=== PATIENT | female | born 1970 | race Caucasian/White ===

== ENCOUNTER → 2020-03-02 | Outpatient (CLI) | payer OTHER ==
[~2020-03-02] MED LIST: DIATRIZOATE MEGL/DIATRIZOA SOD 30 ML BTL PO ONE; IOPAMIDOL 370 MG/ML 200 ML INFUS..BTL INJ ONE; NEXIUM40 MG; SODIUM CHLORIDE 0.9% 50ML 50 ML ONE
--- NOTE | 2020-03-02 11:09 | Diagnostic Imaging Report ---
CT of the pelvis, with contrast. History: Left groin pain. Comparison: None available. Technique: Multidetector CT scanning of the pelvis was performed after intravenous and oral administration of contrast. Coronal and sagittal multiplanar reformations were obtained. RADIATION DOSE: Total DLP: 342.74 mGy*cm Dose modulation, iterative reconstruction, and/or weight based adjustment of the mA/kV was utilized to reduce the radiation dose to as low as reasonably achievable. FINDINGS: The visualized loops of small and large bowel demonstrate no evidence of obstruction or inflammation. The appendix is visualized and appears unremarkable. There is no ascites or intraperitoneal free air visualized within the pelvis. Normal-sized inguinal lymph nodes are noted. No abnormally enlarged lymph nodes are identified within the pelvis. No significant inguinal hernia is identified. The visualized iliac vessels are unremarkable. The uterus appears slightly heterogeneous and contains a small amount of fluid within the medial canal, recommend correlation with menstrual cycle. There is a 3.2 x 2.9 cm cystic structure identified within the left adnexa. The osseous structures demonstrate no evidence for acute fracture or destructive process. The extraperitoneal soft tissues are unremarkable. IMPRESSION: 3.2 cm cystic structure identified within the left adnexa. Given size and patient symptomatology, recommend follow-up pelvic ultrasound examination in 6-12 weeks. No other acute intrapelvic process identified. Signed by: Dr. Hosea Thakkar MD on 03/02/2020 11:06 AM
== END ==
LOC: CT 08:32
PROVIDERS: ATTEND Surgery
DX: R10.32 Left lower quadrant pain (principal)
CPT/HCPCS: 72193; Q9967

== ENCOUNTER → 2024-03-19 | Day surgery (SDC) | payer OTHER ==
[~2024-03-19] MED LIST changes: -DIATRIZOATE MEGL/DIATRIZOA SOD 30 ML BTL PO ONE; +HYOSCYAMINE SULFATE 0.5 MG/ML INJ ONE; -IOPAMIDOL 370 MG/ML 200 ML INFUS..BTL INJ ONE; +PROPOFOL IV EMULSION 10 MG/ML 20 ML VIAL ONE; +PROPOFOL IV EMULSION 50 ML IV ONE; -SODIUM CHLORIDE 0.9% 50ML 50 ML ONE
[2024-03-19] MEDS: LACTATED RINGER'S 1,000 ML ONE (12:31)
[2024-03-19 15:49] VITALS: TEMP 98.2
[2024-03-19 16:15] VITALS: BP 118/82; PULSE 98; RESP 16; O2SAT 99
== END | disposition home or self-care (01) ==
LOC: OR 11:57
PROVIDERS: ATTEND Internal Medicine Gastroenterology
DX: Z12.11 Encounter for screening for malignant neoplasm of colon (principal); K64.8 Other hemorrhoids; K21.9 Gastro-esophageal reflux disease without esophagitis
CPT/HCPCS: 45378; 81025; J1980; J2704 ×2; J7121